=== PATIENT | female | born 1950 | race Caucasian/White ===

== ENCOUNTER 2018-08-31 10:30 | Inpatient (IN) ==
[2018-08-31] MEDS ORDERED: SODIUM CHLORIDE 0.9% 1,000 ML IV STA (10:58)
[2018-08-31 11:17] LABS: Basophils % 0.2 % (0.0-0.8); Eosinophils # 0.1 10*3/uL (0.0-0.87); Eosinophils % 0.6 % (0.00-10.9); Hematocrit 44.3 VOL% (35.7-47.0); Hemoglobin 13.9 GM/DL (12.0-16.0); Immature Granulocytes % 0.2 %; Immature Granulocytes Absolute 0.02 #; Lymphocytes # 0.9 10*3/uL (1.4-4.0); Lymphocytes % 8.4 % (21.3-54.2); Mean Corpuscular HGB Conc 31.4 GM/DL (32-36); Mean Corpuscular Hemoglobin 26 PG (27-34); Mean Corpuscular Volume 84.2 FL (87-102); Mean Platelet Volume 11.2 FL (9.6-12.0); Monocytes # 0.6 10*3/uL (0.11-0.8); Monocytes % 6.1 % (1.7-12.7); Neutrophils # 8.6 10*3/uL (1.4-7.4); Neutrophils % 84.5 % (38.7-73.9); Platelet Count 246 T/CUMM (130-400); Red Blood Count 5.26 MC/CUMM (3.8-5.5); White Blood Count 10.2 T/CUMM (4-12)
[2018-08-31 11:38] LABS: Albumin 3.2 G/DL (3.4-5.0); Bilirubin,Total 0.7 MG/DL (0.2-1.0); Calcium 8.2 MG/DL (8.5-10.1); Osmolality,Calculated 283.1 MOS/KG (273-304); Potassium 3.6 MMOL/L (3.5-5.1); Total Protein 6.8 G/DL (6.4-8.3)
[2018-08-31 12:00] LABS: Apearance,Urine CLEAR (Clear); Bilirubin,Urine Negative (Negative); Blood, Urine Negative (Negative); Glucose,Urine (UA) Negative (Negative); Ketones,Urine 20 mg/dL (Negative); Mucus,Urine Few /LPF (Occasional); Nitrite,Urine Negative (Negative); Protein,Urine Negative; RBC,Urine 8 /HPF (0-4); Squamous Epithelial Cell,Urine Occasional /HPF (0-10); Urine Color Yellow (Yellow); Urine Specific Gravity 1.021 (1.001-1.035); WBC,Urine <1 /HPF (0-6)
[2018-08-31] MEDS ORDERED: MORPHINE 4 MG/1 ML VIAL IV PRN (13:04)
[2018-08-31] MEDS ORDERED: ONDANSETRON 4 MG/2 ML VIAL IV PRN (13:04)
[2018-08-31] MEDS ORDERED: BISACODYL 10 MG SUPP RECTAL ONE (13:10)
[2018-08-31] MEDS ORDERED: DEXTROSE 50% 25 GM/50 ML VIAL IV PRN (13:12)
[2018-08-31] MEDS ORDERED: GLUCAGON 1 MG VIAL IM PRN (13:12)
[2018-08-31] MEDS ORDERED: hydrALAZINE 20 MG/1 ML VIAL IV PRN (13:26)
[2018-08-31] MEDS: SODIUM CHLORIDE 0.9% 1,000 ML IV SCH (14:22)
[2018-08-31] MEDS ORDERED: ENALAPRIL 20 MG TABLET PO SCH (14:30)
[2018-08-31] MEDS: ENOXAPARIN 40 MG/0.4 ML SYRINGE SUBCUT SCH (15:37)
[2018-08-31] MEDS: BENAZEPRIL 40 MG TABLET PO SCH (16:18)
[2018-08-31] MEDS: FERROUS SULFATE ER 140 MG TABLET PO SCH (16:18)
[2018-08-31] MEDS: INSULIN REGULAR 100 UNIT/ML SUBCUT SCH (19:47)
[2018-08-31] MEDS: ATORVASTATIN 10 MG TABLET PO SCH (20:27)
[2018-09-01] MEDS: INSULIN REGULAR 100 UNIT/ML SUBCUT SCH ×4 (01:49→18:01)
[2018-09-01] MEDS: SODIUM CHLORIDE 0.9% 1,000 ML IV SCH ×3 (03:00→21:06)
[2018-09-01 05:07] LABS: Basophils % 0.4 % (0.0-0.8); Eosinophils # 0.2 10*3/uL (0.0-0.87); Eosinophils % 1.9 % (0.00-10.9); Hematocrit 39.6 VOL% (35.7-47.0); Hemoglobin 12.2 GM/DL (12.0-16.0); Immature Granulocytes % 0.4 %; Immature Granulocytes Absolute 0.04 #; Lymphocytes # 1.1 10*3/uL (1.4-4.0); Lymphocytes % 11.9 % (21.3-54.2); Mean Corpuscular HGB Conc 30.8 GM/DL (32-36); Mean Corpuscular Hemoglobin 27 PG (27-34); Mean Corpuscular Volume 86.1 FL (87-102); Monocytes # 0.8 10*3/uL (0.11-0.8); Monocytes % 8.3 % (1.7-12.7); Neutrophils # 7.2 10*3/uL (1.4-7.4); Neutrophils % 77.1 % (38.7-73.9); Platelet Count 225 T/CUMM (130-400); Red Cell Distribution Width 14.8 % (9.3-17.3); White Blood Count 9.4 T/CUMM (4-12)
[2018-09-01 05:18] LABS: Calcium 7.9 MG/DL (8.5-10.1); Osmolality,Calculated 278.3 MOS/KG (273-304); Potassium 3.4 MMOL/L (3.5-5.1)
[2018-09-01 05:21] LABS: Albumin 2.9 G/DL (3.4-5.0); Bilirubin,Direct 0.16 MG/DL (0.0-0.20); Bilirubin,Indirect 0.5 MG/DL (0.0-1.0); Bilirubin,Total 0.7 MG/DL (0.2-1.0); Total Protein 6.1 G/DL (6.4-8.3)
[2018-09-01] MEDS: LEVOTHYROXINE 75 MCG TABLET PO SCH (05:38)
[2018-09-01] MEDS: POTASSIUM CHLORIDE 20 MEQ TABLET PO PRN ×3 (10:09→17:59)
[2018-09-01] MEDS: BENAZEPRIL 40 MG TABLET PO SCH (14:30)
[2018-09-01] MEDS: FERROUS SULFATE ER 140 MG TABLET PO SCH (14:32)
[2018-09-01] MEDS: ENOXAPARIN 40 MG/0.4 ML SYRINGE SUBCUT SCH (14:32)
[2018-09-01] MEDS: ATORVASTATIN 10 MG TABLET PO SCH (21:04)
[2018-09-02] MEDS: INSULIN REGULAR 100 UNIT/ML SUBCUT SCH ×3 (00:31→11:47)
[2018-09-02 05:35] LABS: Basophils % 0.3 % (0.0-0.8); Eosinophils # 0.2 10*3/uL (0.0-0.87); Eosinophils % 1.9 % (0.00-10.9); Hematocrit 38.9 VOL% (35.7-47.0); Hemoglobin 12.1 GM/DL (12.0-16.0); Immature Granulocytes % 0.2 %; Immature Granulocytes Absolute 0.02 #; Lymphocytes # 1.2 10*3/uL (1.4-4.0); Lymphocytes % 12.4 % (21.3-54.2); Mean Corpuscular HGB Conc 31.1 GM/DL (32-36); Mean Corpuscular Hemoglobin 26 PG (27-34); Mean Corpuscular Volume 84.7 FL (87-102); Mean Platelet Volume 10.9 FL (9.6-12.0); Monocytes # 0.9 10*3/uL (0.11-0.8); Monocytes % 9.1 % (1.7-12.7); Neutrophils # 7.1 10*3/uL (1.4-7.4); Neutrophils % 76.1 % (38.7-73.9); Platelet Count 239 T/CUMM (130-400); Red Blood Count 4.59 MC/CUMM (3.8-5.5); Red Cell Distribution Width 14.6 % (9.3-17.3); White Blood Count 9.3 T/CUMM (4-12)
[2018-09-02 06:00] LABS: Albumin 2.6 G/DL (3.4-5.0); Bilirubin,Total 0.5 MG/DL (0.2-1.0); Calcium 7.9 MG/DL (8.5-10.1); Osmolality,Calculated 282.8 MOS/KG (273-304); Potassium 3.7 MMOL/L (3.5-5.1); Total Protein 5.7 G/DL (6.4-8.3)
[2018-09-02] MEDS: LEVOTHYROXINE 75 MCG TABLET PO SCH (06:20)
[2018-09-02] MEDS: BENAZEPRIL 40 MG TABLET PO SCH (08:56)
[2018-09-02] MEDS: FERROUS SULFATE ER 140 MG TABLET PO SCH (08:56)
[2018-09-02] MEDS ORDERED: ASPIRIN EC 81 MG TABLET PO SCH (09:00)
[2018-09-02 10:55] VITALS: BP 135/89
[2018-09-02] MEDS ORDERED: CARVEDILOL 6.25 MG TABLET PO SCH (11:00)
[2018-09-02] MEDS: SODIUM CHLORIDE 0.9% 1,000 ML IV SCH (11:47)
== END 2018-09-02 12:30 | disposition home or self-care (01) | DRG 438 ==
LOC: EDBD → EDUNIT# → N.ED 10:30 → N.EDINP 13:04 → N.2E 19:00
PROVIDERS: ADMIT Internal Medicine; ATTEND Internal Medicine

== ENCOUNTER 2018-09-20 11:40 | Inpatient (IN) ==
[2018-09-20] MEDS ORDERED: ONDANSETRON 4 MG/2 ML VIAL IV STA (14:28)
[2018-09-20] MEDS ORDERED: ALBUTEROL/IPRATROPIUM 3 ML NEB RESP TX STA (14:28)
[2018-09-20] MEDS ORDERED: MORPHINE 4 MG/1 ML VIAL IV STA (14:28)
[2018-09-20] MEDS ORDERED: FUROSEMIDE 100 MG/10 ML VIAL IV STA (14:28)
[2018-09-20] MEDS ORDERED: ASPIRIN 325 MG TABLET PO STA (14:28)
[2018-09-20 15:07] LABS: Apearance,Urine Slightly Hazy (Clear); Bacteria,Urine Moderate /HPF (Few); Bilirubin,Urine Negative (Negative); Blood, Urine Negative (Negative); Glucose,Urine (UA) Negative (Negative); Ketones,Urine Negative (Negative); Mucus,Urine Moderate /LPF (Occasional); Nitrite,Urine Positive (Negative); Protein,Urine Negative; RBC,Urine 2 /HPF (0-4); Squamous Epithelial Cell,Urine Occasional /HPF (0-10); Urine Color Yellow (Yellow); Urine Specific Gravity 1.015 (1.001-1.035); WBC,Urine 15 /HPF (0-6)
[2018-09-20 15:13] LABS: Basophils % 0.3 % (0.0-0.8); Eosinophils # 0.2 10*3/uL (0.0-0.87); Eosinophils % 2.5 % (0.00-10.9); Hemoglobin 13.8 GM/DL (12.0-16.0); Immature Granulocytes % 0.4 %; Immature Granulocytes Absolute 0.04 #; Lymphocytes # 2.1 10*3/uL (1.4-4.0); Lymphocytes % 22.6 % (21.3-54.2); Mean Corpuscular HGB Conc 30.7 GM/DL (32-36); Mean Corpuscular Hemoglobin 26 PG (27-34); Mean Corpuscular Volume 85.9 FL (87-102); Mean Platelet Volume 11.4 FL (9.6-12.0); Monocytes # 0.8 10*3/uL (0.11-0.8); Monocytes % 8.9 % (1.7-12.7); Neutrophils # 6.2 10*3/uL (1.4-7.4); Neutrophils % 65.3 % (38.7-73.9); Platelet Count 234 T/CUMM (130-400); Red Blood Count 5.24 MC/CUMM (3.8-5.5); Red Cell Distribution Width 15.1 % (9.3-17.3); White Blood Count 9.5 T/CUMM (4-12)
[2018-09-20 15:23] LABS: INR 1.1; PT Patient Result 11.9 SECS
[2018-09-20 15:37] LABS: Albumin 3.8 G/DL (3.4-5.0); Bilirubin,Total 0.5 MG/DL (0.2-1.0); Osmolality,Calculated 289.6 MOS/KG (273-304); Potassium 3.7 MMOL/L (3.5-5.1); Total Protein 6.5 G/DL (6.4-8.3)
[2018-09-20] MEDS ORDERED: cefTRIAXone 1,000 MG in SODIUM CHLORIDE 0.9% 100 ML IV STA (17:10)
[2018-09-20] MEDS ORDERED: ONDANSETRON 4 MG/2 ML VIAL IV PRN (18:30)
[2018-09-20] MEDS ORDERED: ACETAMINOPHEN 325 MG TABLET PO PRN (18:30)
[2018-09-20] MEDS ORDERED: ALBUTEROL/IPRATROPIUM 3 ML NEB RESP TX PRN (18:48)
[2018-09-20] MEDS ORDERED: cefTRIAXone 1,000 MG in SODIUM CHLORIDE 0.9% 100 ML IV SCH (19:00)
[2018-09-20] MEDS ORDERED: ATORVASTATIN 10 MG TABLET PO SCH (21:00)
[2018-09-20] MEDS: MULTIVITAMIN (OCUVITE) TABLET PO SCH (21:03)
[2018-09-21 04:31] LABS: Basophils % 0.4 % (0.0-0.8); Eosinophils # 0.3 10*3/uL (0.0-0.87); Eosinophils % 3.2 % (0.00-10.9); Hemoglobin 12.5 GM/DL (12.0-16.0); Immature Granulocytes % 0.3 %; Immature Granulocytes Absolute 0.03 #; Lymphocytes # 2.2 10*3/uL (1.4-4.0); Lymphocytes % 24.8 % (21.3-54.2); Mean Corpuscular HGB Conc 29.7 GM/DL (32-36); Mean Corpuscular Hemoglobin 26 PG (27-34); Mean Corpuscular Volume 87.7 FL (87-102); Mean Platelet Volume 11.6 FL (9.6-12.0); Monocytes # 0.9 10*3/uL (0.11-0.8); Monocytes % 9.8 % (1.7-12.7); Neutrophils # 5.6 10*3/uL (1.4-7.4); Neutrophils % 61.5 % (38.7-73.9); Platelet Count 233 T/CUMM (130-400); Red Cell Distribution Width 15.1 % (9.3-17.3); White Blood Count 9.1 T/CUMM (4-12)
[2018-09-21 04:51] LABS: Hematocrit 42.1 VOL% (35.7-47.0)
[2018-09-21 04:54] LABS: Calcium 8.7 MG/DL (8.5-10.1); Osmolality,Calculated 289.6 MOS/KG (273-304); Potassium 3.7 MMOL/L (3.5-5.1); Risk Ratio 1.91; Thyroid Stimulating Hormone 2.77 uIU/ml (0.358-3.74); VLDL CHOLESTEROL 15.2 MG/DL
[2018-09-21] MEDS ORDERED: LEVOTHYROXINE 75 MCG TABLET PO SCH (07:00)
[2018-09-21] MEDS ORDERED: ENOXAPARIN 40 MG/0.4 ML SYRINGE SUBCUT SCH (09:00)
[2018-09-21] MEDS ORDERED: cefTRIAXone 1,000 MG in SYRINGE 1 EACH IV SCH (09:00)
[2018-09-21] MEDS: PANTOPRAZOLE 40 MG TABLET PO SCH ×2 (09:02→09:21)
[2018-09-21] MEDS: BENAZEPRIL 40 MG TABLET PO SCH ×2 (09:02→09:21)
[2018-09-21] MEDS: MULTIVITAMIN (OCUVITE) TABLET PO SCH ×2 (09:02→09:21)
[2018-09-21] MEDS: FUROSEMIDE 40 MG/4 ML VIAL IV SCH ×2 (09:14→16:50)
[2018-09-21 16:26] VITALS: BP 125/47
== END 2018-09-21 17:32 | disposition home or self-care (01) | DRG 292 ==
LOC: N.ED 11:40 → N.EDINP 11:40 → N.TELES 19:35
PROVIDERS: ADMIT Internal Medicine; ATTEND Internal Medicine